=== PATIENT | female | born 1970 | race Hispanic/Latino ===

== ENCOUNTER 2021-02-04 13:07 | Outpatient (CLI) | payer OTHER ==
[2021-02-05 02:10] LABS: SARS-CoV-2 PCR by NAA Not Detected (NotDetected)
== END 2021-02-04 13:08 | disposition home or self-care (01) ==
LOC: CSHLAB 13:07
PROVIDERS: ATTEND Internal Medicine Gastroenterology
DX: Z20.822 Contact with and (suspected) exposure to COVID-19 (principal); Z12.11 Encounter for screening for malignant neoplasm of colon
CPT/HCPCS: 87635; U0003; U0005

== ENCOUNTER 2021-02-07 08:32 | Day surgery (SDC) | payer OTHER ==
[2021-02-06 12:55] VITALS: BMI 46.0
[2021-02-07] MEDS ORDERED: Lidocaine 1% MPF 2 ML VIAL ONE (09:22)
[2021-02-07] MEDS ORDERED: PROPOFOL 40 ML ONE (10:54)
[2021-02-07] MEDS ORDERED: Lidocaine 1% PF 5 ML VIAL ONE (10:55)
== END 2021-02-07 12:22 | disposition home or self-care (01) ==
LOC: CSHSDC 08:32
PROVIDERS: ATTEND Internal Medicine Gastroenterology
PROC: 0DJD8ZZ Inspection of Lower Intestinal Tract, Via Natural or Artificial Opening Endoscopic (ICD-10-PCS; principal; 2021-02-07)
DX: Z12.11 Encounter for screening for malignant neoplasm of colon (principal); K57.30 Diverticulosis of large intestine without perforation or abscess without bleeding; E66.9 Obesity, unspecified; I10 Essential (primary) hypertension; G47.30 Sleep apnea, unspecified; Z90.49 Acquired absence of other specified parts of digestive tract
CPT/HCPCS: J2704